=== PATIENT | male | born 1975 | race Caucasian/White ===

== ENCOUNTER 2018-06-08 18:19 | Emergency (ER) | payer OTHER ==
[2018-06-08] MEDS ORDERED: KETOROLAC 60 MG/2 ML VIAL IM STA (19:08)
[2018-06-08 19:10] VITALS: RESP 18; TEMP 98.3
[2018-06-08] MEDS ORDERED: ORPHENADRINE 30 MG/ML 2 ML VIAL IM STA (19:13)
--- NOTE | 2018-06-08 19:23 | ED ---
General Adult HPI - General Chief complaint: Back Pain/Injury Stated complaint: Back Spasm Time Seen by Provider: 06/08/18 18:42 Source: patient, RN notes reviewed Mode of arrival: wheelchair Limitations: no limitations - History of Present Illness Initial comments: Patient is a 42-year-old male who presents to the emergency department with complaints of right sided low back pain radiating to his right leg that started today at 10 AM. He reports that he was helping his friend pull a deer up and that he felt a pop. He took Flexeril and Ultram at 2 PM. He reports that he is currently in pain. Patient denies any recent trauma, numbness or tingling, saddle anesthesia, loss of bowel or bladder function, dysuria or hematuria, fever, chills, shortness of breath, chest pain, abdominal pain, nausea or vomiting, headaches or visual changes, or any other complaints. - Related Data Home Medications Medication Instructions Recorded Confirmed Diazepam [Valium] 10 mg PO DIRECTED PRN 07/22/15 07/23/15 Previous Rx's Medication Instructions Recorded Ibuprofen [Motrin] 600 mg PO Q6HR PRN #40 day 06/08/18 Allergies Allergy/AdvReac Type Severity Reaction Status Date / Time No Known Allergies Allergy Verified 07/22/15 08:37 Review of Systems ROS Statement: Those systems with pertinent positive or pertinent negative responses have been documented in the HPI. ROS Other: All systems not noted in ROS Statement are negative. Past Medical History Additional Past Medical History / Comment(s): constipation History of Any Multi-Drug Resistant Organisms: None Reported Past Surgical History: No Surgical Hx Reported Past Anesthesia/Blood Transfusion Reactions: Family History of Problems w/ Anesthesia Additional Past Anesthesia/Blood Transfusion Reaction / Comment(s): father had reaction to anesthesia (propofol) closed his airway and he on the operating table. Past Psychological History: No Psychological Hx Reported Smoking Status: Current every day smoker Past Alcohol Use History: None Reported Past Drug Use History: None Reported - Past Family History Mother Family Medical History: No Reported History General Exam Limitations: no limitations General appearance: alert Head exam: Present: atraumatic, normocephalic Eye exam: Present: normal appearance, PERRL, EOMI ENT exam: Present: normal exam, normal oropharynx Neck exam: Present: normal inspection, full ROM Respiratory exam: Present: normal lung sounds bilaterally Cardiovascular Exam: Present: regular rate, normal rhythm, other (DP and PT pulses are palpable and strong bilaterally.) GI/Abdominal exam: Present: soft, normal bowel sounds Extremities exam: Present: full ROM, normal capillary refill, other (Sensation intact.) Back exam: Present: other (No midline spinal tenderness. Tender to palpation over the right low back and hips musculature.) Neurological exam: Present: alert, oriented X3, CN II-XII intact Psychiatric exam: Present: normal affect, normal mood Skin exam: Present: warm, dry, normal color Course Vital Signs 06/08/18 18:59 Temperature 98.3 F Pulse Rate 73 Respiratory 18 Rate Blood Pressure 142/63 O2 Sat by Pulse 100 Oximetry Medical Decision Making - Medical Decision Making Patient is a 42 year old male with complaint of right-sided low back pain radiating to his right leg since earlier today. He was given Toradol and Norflex for his pain. Lumbar x-ray is negative. This is likely a pulled muscle. He will be driven home by his . He will be given a prescription for ibuprofen. Disposition Clinical Impression: Strain of lumbar region Disposition: HOME SELF-CARE Condition: Good Instructions: Acute Low Back Pain (ED) Additional Instructions: Follow up with PCP in 2 days. Return to emergency department if symptoms worsen or any other concerns. Prescriptions: Ibuprofen [Motrin] 600 mg PO Q6HR PRN #40 day PRN Reason: Pain Is patient prescribed a controlled substance at d/c from ED?: No Referrals: Star Burkett DO [Primary Care Provider] - 1-2 days Time of Disposition: 20:26
--- NOTE | 2018-06-08 19:31 | XR ---
EXAMINATION TYPE: XR lumbar spine 2 or 3V DATE OF EXAM: 06/08/2018 COMPARISON: NONE HISTORY: Back pain TECHNIQUE: 3 views FINDINGS: Lumbar vertebra have normal spacing and alignment. Posterior elements are intact. Sacroilia c joints appear intact. IMPRESSION: Negative lumbar spine exam.
[2018-06-08 20:42] VITALS: BP 145/63; PULSE 64
== END 2018-06-08 20:43 | disposition home or self-care (01) ==
LOC: EC 18:19
DX: S39.012A Strain of muscle, fascia and tendon of lower back, initial encounter (principal); F17.200 Nicotine dependence, unspecified, uncomplicated; X50.9XXA Other and unspecified overexertion or strenuous movements or postures, initial encounter
CPT/HCPCS: 72100; 96372; 99283